=== PATIENT | male | born 1955 ===

== ENCOUNTER 2023-07-01 10:59 | Outpatient (REF) | payer OTHER, SELFPAY ==
[2023-07-01 14:47] LABS: HCT 43.3 % (40.0-50.0); HGB 14.6 g/dL (13.5-17.5); MCH 28.7 pg (27.0-33.0); MCHC 33.7 % (32.0-36.0); MCV 85 fL (80-95); MPV 9.8 fL (8.0-11.0); Platelet Count 222 10^3/uL (130-400); RBC 5.08 10^6/uL (4.36-5.78); RDW 13.3 % (11.8-14.1); RDW-SD 41.5 fL; WBC 4.75 10^3/uL (4.4-10.8)
[2023-07-01 15:10] LABS: ALT 24 U/L (16-63); AST 16 U/L (15-37); Albumin 3.7 g/dL (3.4-5.0); Alkaline Phosphatase 120 U/L (46-116); Anion Gap 6.5 mmol/L (3-11); BUN 11 mg/dL (7-18); Bilirubin, Total 0.7 mg/dL (0.2-1.0); CO2 26.5 mmol/L (21.0-32.0); CREATININE 1.1 mg/dL (0.70-1.30); Calcium 8.7 mg/dL (8.5-10.1); Calculated LDL 125 mg/dL (<100); Chloride 105 mmol/L (98-107); Cholesterol 209 mg/dL (<200); Estimated GFR 74.04 (mL/min/1.73m2); Glucose 104 mg/dL (74-106); HDL Cholesterol 45 mg/dL (40-60); Potassium 4.3 mmol/L (3.5-5.1); Sodium 138 mmol/L (136-145); Total Protein 6.9 g/dL (6.4-8.2); Triglyceride 199 mg/dL (<150)
== END 2023-07-01 11:00 | disposition home or self-care (01) ==
LOC: NCHCN 10:59
PROVIDERS: Visit Provider Nurse Practitioner Family
DX: Z00.00 Encounter for general adult medical examination without abnormal findings (principal)
CPT/HCPCS: 80053; 80061; 85027

== ENCOUNTER 2024-05-27 08:47 | Outpatient (REF) | payer MEDICARE, SELFPAY ==
[2024-05-27 14:45] LABS: HCT 44.5 % (40.0-50.0); HGB 14.8 g/dL (13.5-17.5); MCHC 33.3 % (32.0-36.0); MCV 84 fL (80-95); Platelet Count 193 10^3/uL (130-400); RBC 5.28 10^6/uL (4.36-5.78); RDW 13.7 % (11.8-14.1); RDW-SD 42.2 fL; WBC 4.69 10^3/uL (4.4-10.8)
[2024-05-27 15:27] LABS: Iron 64 ug/dL (65-175); Total Iron Binding Capacity 288 ug/dL (250-450); Transferrin Sat 22 % (20-55)
[2024-05-27 15:39] LABS: ALT 25 U/L (16-63); AST 19 U/L (15-37); Albumin 3.8 g/dL (3.4-5.0); Alkaline Phosphatase 132 U/L (46-116); Anion Gap 9.6 mmol/L (3-11); BUN 14 mg/dL (7-18); Bilirubin, Total 0.6 mg/dL (0.2-1.0); CO2 28.4 mmol/L (21.0-32.0); CREATININE 0.9 mg/dL (0.70-1.30); Calcium 9.1 mg/dL (8.5-10.1); Chloride 108 mmol/L (98-107); Estimated GFR 94.19 (mL/min/1.73m2); Ferritin 72 ng/mL (26-388); Glucose 92 mg/dL (74-106); Magnesium 2.4 mg/dL; Potassium 4.4 mmol/L (3.5-5.1); Sodium 146 mmol/L (136-145); TSH (W/Ref FT4) 4.54 uIU/mL (0.36-3.74); Vitamin B12 432 pg/mL (193-986); Vitamin D 25 Total 16 ng/mL (30-100)
[2024-05-27 15:59] LABS: FREE T4 1.05 ng/dL (0.76-1.46); GGT 35 U/L (15-85)
[2024-05-28 11:03] LABS: Lyme Ab w Rflx to Lyme Confirm Negative (Negative)
[2024-05-29 23:50] LABS: Anaplasma phagocytophilum Negative (Negative); B. miyamotoi PCR Negative (Negative); Babesia divergens/MO-1 Negative (Negative); Babesia duncani Negative (Negative); Babesia microti Negative (Negative); Ehrlichia chaffeensis Negative (Negative); Ehrlichia ewingii/canis Negative (Negative); Ehrlichia muris eauclairensis Negative (Negative)
== END 2024-05-27 08:48 | disposition home or self-care (01) ==
LOC: NCHCN 08:47
PROVIDERS: Visit Provider Nurse Practitioner Family
DX: R74.8 Abnormal levels of other serum enzymes (principal); R53.83 Other fatigue
CPT/HCPCS: 80053; 82306; 85027; 87798; 82607; 82728; 82977; 83540; 83550; 83735; 84439; 84443; 86618

== ENCOUNTER 2024-11-18 09:32 | Outpatient (REF) | payer MEDICARE, SELFPAY ==
[2024-11-18 15:51] LABS: ALT 24 U/L (16-63); AST 22 U/L (15-37); Albumin 3.6 g/dL (3.4-5.0); Alkaline Phosphatase 129 U/L (46-116); Anion Gap 10.4 mmol/L (3-11); BUN 12 mg/dL (7-18); Bilirubin, Total 0.7 mg/dL (0.2-1.0); CO2 26.6 mmol/L (21.0-32.0); Calcium 9.1 mg/dL (8.5-10.1); Calculated LDL 107 mg/dL (<100); Chloride 106 mmol/L (98-107); Cholesterol 188 mg/dL (<200); Estimated GFR 93.61 (mL/min/1.73m2); Glucose 101 mg/dL (74-106); HDL Cholesterol 38 mg/dL (>or=40); Potassium 4.1 mmol/L (3.5-5.1); Sodium 143 mmol/L (136-145); TSH (W/Ref FT4) 1.94 uIU/mL (0.36-3.74); Total Protein 7.0 g/dL (6.4-8.2); Triglyceride 215 mg/dL (<150); Vitamin D 25 Total 48 ng/mL (30-100)
== END 2024-11-18 09:33 | disposition home or self-care (01) ==
LOC: NCHCN 09:32
PROVIDERS: Visit Provider Nurse Practitioner Family
DX: R74.8 Abnormal levels of other serum enzymes (principal); E02 Subclinical iodine-deficiency hypothyroidism; E78.2 Mixed hyperlipidemia
CPT/HCPCS: 80053; 80061; 82306; 84443